=== PATIENT | female | born 1965 | race Caucasian/White ===

== ENCOUNTER → 2018-09-01 15:27 | Outpatient (CLI) | payer OTHER, SELFPAY ==
--- NOTE | 2018-09-01 15:37 | RAD_ITS ---
STUDY: X-RAY - LEFT HAND REASON FOR EXAM: Pain and swelling, recent dislocation of the left fourth PIP joint. TECHNIQUE: 3 view(s) of the hand. COMPARISON: None. FINDINGS: Normal radiocarpal articulation. Normal distal radioulnar joint. Normal visualized carpal bones. Normal carpal articulations Normal carpometacarpal articulation of the thumb. Normal second through fifth carpometacarpal joints. Normal metacarpi. Normal metacarpophalangeal joint of the thumb. Normal interphalangeal joint of the thumb. Normal proximal and distal phalanges of the thumb. Normal metacarpophalangeal joints of the second through fifth fingers. Normal proximal and distal interphalangeal joints of the second through fifth fingers. There is a questionable very small nondisplaced fracture at the ulnar base of the fourth middle phalanx identified only on the PA view. There is soft tissue swelling at the fourth proximal interphalangeal joint. RAD/Hand Min 3 Views IMPRESSION: Questionable very small nondisplaced fracture of the ulnar base of the fourth middle phalanx. Soft tissue swelling at the fourth proximal interphalangeal joint. Electronically Signed: Kem Yo MD at 9:22 EDT Tel , Service support ,
== END ==
PROVIDERS: Family Provider Family Medicine Geriatric Medicine; PCP Family Medicine Geriatric Medicine; Referring Provider Family Medicine Geriatric Medicine; Visit Provider Family Medicine Geriatric Medicine
DX: S63.635D Sprain of interphalangeal joint of left ring finger, subsequent encounter (principal)
CPT/HCPCS: 73130